=== PATIENT | female | born 1970 | race African-American/Black ===

== ENCOUNTER 2016-12-26 06:48 | Inpatient (IN) | payer BC, MEDICAID ==
[2016-12-26] MEDS ORDERED: MINERAL OIL PO PRN (06:51)
[2016-12-26] MEDS ORDERED: ePHEDrine SULFATE IV PRN (06:51)
[2016-12-26] MEDS ORDERED: XYLOCAINE 2% INFILTRATI ONE (06:51)
[2016-12-26] MEDS ORDERED: PITOCin/NS 20 UNIT/1000ML DRIP 20 UNITS/1,000 ML BAG IV SCH (07:00)
[2016-12-26] MEDS ORDERED: LACTATED RINGERS 1,000 ML IV SCH (07:00)
[2016-12-26] MEDS ORDERED: PITOCin/NS 30 UNIT/500ML 30 UNITS/500 ML BAG IV SCH (07:00)
--- NOTE | 2016-12-26 07:01 | History and Physical Report ---
History of Present Illness Date of examination: 12/26/16 Date of admission: 12/26/16 06:48 Chief complaint: Patient complains of contractions for the past 3 hours. History of present illness: 46 year old female presents to L&D with complaint of contractions since 4 AM today. She denies vaginal bleeding or leaking of fluid. Past History Past Medical History: no pertinent history Past Surgical History: no surgical history [employer] History: other (negative) Family/Genetic History: none Social history: lives with family, full code. denies: smoking, alcohol abuse - Obstetrical History Expected Date of Delivery: 01/01/17 Actual Gestation: 39 Week(s) 1 Day(s) : 4 Para: 2 Hx # Term Pregnancies: 3 Number of Pregnancies: 0 Spontaneous Abortions: 1 Induced : 0 Number of Living Children: 2 Medications and Allergies Allergies Allergy/AdvReac Type Severity Reaction Status Date / Time No Known Allergies Allergy Verified 04/29/13 10:02 Home Medications Medication Instructions Recorded Confirmed Last Taken Type No Known Home Medications [No 04/30/13 04/30/13 Unknown History Reported Home Medications] Active Meds: Active Medications Lactated Ringer's (Lactated Ringers) 1,000 mls @ 125 mls/hr IV DIRECT PATI Oxytocin/Sodium Chloride (Pitocin/Ns 20 Unit/1000ml Drip) 20 units in 1,000 mls @ 125 mls/hr IV DIRECT PATI Oxytocin/Sodium Chloride (Pitocin/Ns 30 Unit/500ml) 30 units in 500 mls @ 1 mls /hr IV TITR PATI; 1 MILLIUNITS/MIN PRN Reason: Protocol Mineral Oil (Mineral Oil) 30 ml PO QHS PRN PRN Reason: Constipation Review of Systems Constitutional: no fever, no chills Ears, nose, mouth and throat: no headache Cardiovascular: no edema, no lightheadedness Respiratory: no cough Gastrointestinal: no abdominal pain, no nausea, no vomiting Genitourinary: no vaginal bleeding, no leakage of fluid, no genital sores Neurological: no headaches - Physical Exam Breasts: Positive: deferred Cardiovascular: Regular rate, No murmurs Lungs: Positive: Clear to auscultation Abdomen: Positive: normal appearance, soft. Negative: distention, tenderness, guarding Genitourinary (Female): Positive: normal external genitalia. Negative: perineal /vulvar lesions Uterus: Positive: enlarged Extremities: Positive: normal. Negative: edema - Obstetrical FHR: category 1 Uterine Contraction Monitor Mode: External Cervical Dilatation: 9 Cervical Effacement Percentage: 100 station: -3 Uterine Contraction Pattern: Regular Uterine Contraction Intensity: Moderate Results All other labs normal. Assessment and Plan A: at 39 weeks, 1 day gestation. Labor. GBS negative. AMA. P: Admit. Anticipate .
[2016-12-26 07:22] LABS: Hematocrit 35.4 % (30.3-42.9); Hemoglobin 11.6 gm/dl (10.1-14.3); Mean Corpuscular HGB Conc 33 % (30-34); Mean Corpuscular Hemoglobin 28 pg (28-32); Mean Corpuscular Volume 87 fl (79-97); Platelet Count 283 K/mm3 (140-440); Red Blood Count 4.08 M/mm3 (3.65-5.03); White Blood Count 7.9 K/mm3 (4.5-11.0)
[2016-12-26 07:43] LABS: Red Cell Distribution Width 20.7 % (13.2-15.2)
[2016-12-26] MEDS ORDERED: CYTOTEC ONE (08:20)
[2016-12-26] MEDS ORDERED: CYTOTEC PR ONE (08:30)
[2016-12-26] MEDS ORDERED: LANSINOH TP PRN (09:00)
[2016-12-26] MEDS ORDERED: SODIUM CHLORIDE FLUSH SYRINGE 10 ML IV PRN (09:00)
--- NOTE | 2016-12-26 09:07 | Procedure Note ---
OB Delivery Note - Vaginal Delivery presentation: vertex Delivery position: OA Intrapartum events: hemorrhage, shoulder dystocia Delivery induction: none Delivery monitor: external FHT, external uterine Route of delivery: Delivery placenta: spontaneous Delivery cord: 3 umbilical vessels Episiotomy: none Delivery laceration: 2nd degree Delivery repair: vicryl Anesthesia: local Delivery comments: Spontaneous vaginal delivery of liveborn female over 2nd degree perineal laceration at 08:10. weight 8 lbs. 6 oz. Apgars 8/9. Thin meconium stained amniotic fluid noted upon SROM with maternal pushing. After delivery of head, turtle sign noted. Right anterior shoulder dystocia. shoulders not forthcoming with maternal expulsive efforts. Suprapubic and Yovana maneuver attempted simultaneously as first maneuvers. Shoulder dystocia resolved with rotation of shoulders to the oblique. Shoulders and body then easily delivered. Spontaneous cry and respirations noted immediately upon of body. Baby bulb suctioned. 3 vessel cord double clamped and cut and baby taken to radiant warmer for evaluation and further suctioning by NICU team. Baby moving both arms well. Spontaneous delivery of intact placenta and membranes by shultz mechanism. Pitocin to IV fluids after delivery of placenta. Fundal massage and Cytotec 800 mcg given rectally for uterine atony. EBL 500 ml. 2nd degree perineal laceration repaired in usual sterile fashion with 2-0 vicryl. Sponge counts correct. Vaginal sweep negative. Rectal exam normal. Mother and baby stable in birthing room.
[2016-12-26] MEDS ORDERED: NORCO 5/325 PO PRN (09:30)
[2016-12-26] MEDS ORDERED: TUCKS PAD TP PRN (09:30)
[2016-12-26] MEDS ORDERED: DERMOPLAST TP PRN (09:30)
[2016-12-26] MEDS: FEOSOL PO SCH (13:53)
[2016-12-26] MEDS: COLACE PO SCH (13:53)
[2016-12-26] MEDS: MOTRIN PO SCH (13:54)
[2016-12-26] MEDS ORDERED: MILK OF MAGNESIA PO PRN (22:00)
[2016-12-27] MEDS: MOTRIN PO SCH ×3 (00:18→12:05)
--- NOTE | 2016-12-27 09:27 | Progress Note ---
Assessment and Plan - Patient Problems (1) (normal spontaneous vaginal delivery) Onset Date: 12/27/16 Current Visit: Yes Status: Resolved Plan to address problem: A: S/P - PPD #1 Doing well P: May go home tomorrow Subjective - Subjective Date of service: 12/27/16 Principal diagnosis: s/p - PPD #1 Interval history: Pt is feeling well without complaints. Bleeding improved. Patient reports: appetite normal, voiding normally, pain well controlled, flatus , ambulating normally : doing well, nursing well Objective - Vital Signs Latest vital signs: Vital Signs Temp Pulse Resp BP BP 12/27/16 08:09 98.2 F 18 105/77 12/27/16 06:00 16 12/27/16 00:18 18 12/26/16 11:15 9806 F H 68 18 115/75 12/26/16 10:29 80 110/63 12/26/16 10:14 83 117/69 12/26/16 10:00 75 112/75 12/26/16 09:45 80 124/66 12/26/16 09:30 78 111/76 Intake and Output 12/26/16 12/27/16 12/27/16 22:59 06:59 14:59 Other: # Voids Void 1 - Exam Breasts: Present: deferred Cardiovascular: Present: Regular rate Lungs: Present: Clear to auscultation Abdomen: Present: normal appearance Uterus: Present: normal, firm, fundal height below umbilicus Extremities: Present: normal - Labs Labs: Laboratory Tests 12/26/16 12/26/16 12/26/16 07:00 07:00 07:00 WBC 7.9 RBC 4.08 Hgb 11.6 Hct 35.4 MCV 87 MCH 28 MCHC 33 RDW 20.7 H Plt Count 283 RPR Nonreactive Blood Type O POSITIVE Antibody Screen Negative 12/27/16 09:08 WBC RBC Hgb 11.8 Hct 36.1 MCV MCH MCHC RDW Plt Count RPR Blood Type Antibody Screen
[2016-12-27 09:29] LABS: Hematocrit 36.1 % (30.3-42.9); Hemoglobin 11.8 gm/dl (10.1-14.3)
[2016-12-27] MEDS: COLACE PO SCH ×2 (10:12→21:11)
[2016-12-27] MEDS: FEOSOL PO SCH ×2 (10:12→21:10)
--- NOTE | 2016-12-27 10:23 | Discharge Summary ---
Providers - Providers Date of Admission: 12/26/16 06:48 Date of discharge: 12/28/16 Attending physician: DANICA JOHNSON MD Primary care physician: DANICA JOHNSON MD Hospitalization Reason for admission: active labor, IUP at term Delivery: Episiotomy: none Laceration: 2nd degree Other procedures: none complications: none Discharge diagnosis: IUP at term delivered baby: female Hospital course: Unremarkable. Condition at discharge: Good Disposition: DC-01 TO HOME OR SELFCARE - Discharge Diagnoses (1) (normal spontaneous vaginal delivery) Status: Resolved Plan - Discharge Medications Prescriptions: Ibuprofen [Motrin 600 MG tab] 600 mg PO Q6H #30 tablet - Provider Discharge Summary Activity: routine, no sex for 6 weeks, no heavy lifting 4 weeks, no strenuous exercise Diet: routine Instructions: routine Additional instructions: [] Smoking cessation referral if applicable(refer to patient education folder for contact #) [] Refer to [facility] Booklet Call your doctor immediately for: * Fever > 100.5 * Heavy vaginal bleeding ( >1 pad per hour) * Severe persistent headache * Shortness of breath * Reddened, hot, painful area to leg or breast * Drainage or odor from incision. * Keep incision clean and dry at all times and follow doctor's instructions regarding bathing/showering - Follow up plan Follow up: DANICA BROOKS MD [Primary Care Provider] - 6 Weeks
[2016-12-28] MEDS: MOTRIN PO SCH ×3 (00:10→17:06)
[2016-12-28 00:30] VITALS: BP 115/76
[2016-12-28] MEDS: FEOSOL PO SCH (17:06)
== END 2016-12-28 17:15 | disposition home or self-care (01) | DRG 774 ==
LOC: LD 06:48 → OB 11:08
PROVIDERS: ADMIT Obstetrics & Gynecology; ATTEND Obstetrics & Gynecology
PROC: 10E0XZZ Delivery of Products of Conception, External Approach (ICD-10-PCS; principal; 2016-12-26)
PROC: 0KQM0ZZ Repair Perineum Muscle, Open Approach (ICD-10-PCS; 2016-12-26)
DX: O77.0 Labor and delivery complicated by meconium in amniotic fluid (principal); O72.1 Other immediate postpartum hemorrhage; O66.0 Obstructed labor due to shoulder dystocia; O70.1 Second degree perineal laceration during delivery; Z3A.39 39 weeks gestation of pregnancy; Z37.0 Single live birth
CPT/HCPCS: 36415; 85014; 85018; 85027; 86592; 86850; 86900; 86901; 99211; A6250; G0463; J2590; J7120